=== PATIENT | female | born 1965 | race Caucasian/White ===

== ENCOUNTER → 2016-12-11 | Outpatient (CLI) | payer OTHER | LOC: FIMAGING 07:34 | PROVIDERS: ATTEND Family Medicine | DX: G45.3 Amaurosis fugax (principal); I77.9 Disorder of arteries and arterioles, unspecified; Z86.2 Personal history of diseases of the blood and blood-forming organs and certain disorders involving the immune mechanism ==

== ENCOUNTER 2017-01-01 09:45 | Day surgery (SDC) | payer OTHER ==
[2017-01-01] MEDS ORDERED: MIDAZOLAM 2 MG/2 ML VIAL IVP ONE (09:50)
[2017-01-01] MEDS ORDERED: BENZOCAINE UNIT DOSE SPRAY HURRICAINE MM ONE (09:50)
[2017-01-01] MEDS ORDERED: NS 1,000 ML IV ONE (09:50)
[2017-01-01] MEDS ORDERED: fentaNYL 100 MCG/2 ML INJ IVP ONE (09:50)
[2017-01-01] MEDS ORDERED: LIDOCAINE 2% 5 ML SDV ONE (10:54)
[2017-01-01] MEDS ORDERED: PROPOFOL 200 MG/20 ML VIAL ONE (10:55)
[2017-01-01 12:37] LABS: % IMMATURE GRANULYOCYTES 0.2 % (0.0-1.1); ABSOLUTE IMMATURE GRANULOCYTES 0.01 10^3/uL (0.00-0.10); ADD DIFF? NO; ADD MORPH? NO; ADD SCAN? NO; ATYPICAL LYMPHOCYTE FLAG 20 (0-99); FRAGMENT RBC FLAG 0 (0-99); HEMATOCRIT 42.1 % (38.0-47.0); HEMOGLOBIN 13.9 g/dL (12.6-16.3); LEFT SHIFT FLG 0 (0-99); LIPEMIA HEMOLYSIS FLAG 80 (0-99); MEAN CELL HEMOGLOBIN 28.4 pg (27.9-34.1); MEAN CELL VOLUME 85.9 fL (81.5-99.8); MEAN PLATELET VOLUME 11.3 fL (8.7-11.7); PLATELET CLUMPS FLAG 0 (0-99); PLATELET COUNT 198 10^3/uL (150-400)
[2017-01-01 13:06] LABS: SEDIMENTATION RATE 7 MM/HR (0-30)
--- NOTE | 2017-01-01 13:09 | ECHO ---
[id number] + + [address] : : [place] [address] : : [phone] + + Transesophageal Echocardiographic Report + ---------+ :Name: THERESE ALAN Date: 01/01/2017 10:58 AM : : Hospital Admission Number: [id number] Loca tion: CVC: :: 1965 Gender: Female : :Age: 51 yrs Race: WH : :Reason For Study: TIA : + ---------+ Left Ventricle Normal LV size and systolic function with a LVEF of 60% and normal wall motions. Right Ventricle Normal RV size and RV systolic function. Atria Injection of contrast documented no interatrial shunt. No thrombus is detected in the left atrial appendage. 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 There is mild to moderate mitral regurgitation. Tricuspid Valve Normal tricuspid valve. Trace TR noted. Aortic Valve The aortic valve is trileaflet. Pulmonic Valve Mild pulmonic valvular regurgitation. Vessels Normal size ascending thoracic aorta (2.5cm) with no dissection flap or atheroma. Conclusion A 2D transesophageal echocardiogram with color flow Doppler was performed. 1)Normal LV size and systolic function with a LVEF of 60% and normal wall motions. 2)No clot or thrombus in any of four cardiac valves or left atrial appendage. PW velocity in VIKTORIYA 50cm/sec. 3)No ASD or PFO noted and negative IV bubble study. 4)Normal trileaflet AV with no or AI noted. 5)Mild to moderate MR without MV prolapse. 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 No echo suggestion of tumor or vegetation. 6)Trivial TR noted. 7)Mild PI noted. 8)Normal ascending thoracic aorta with no atheroma, dissection flap or aneurysm. Final Reading Physician: Pedrito Pimentel electronically signed on 01/01/2017 01:07 PM Ordering Physician: Pedrito Pimentel Performed By: Carina Acuña RDCS
== END 2017-01-01 13:30 | disposition home or self-care (01) ==
LOC: FCATH 09:45
PROVIDERS: ATTEND Internal Medicine Cardiovascular Disease
PROC: B246ZZ4 Ultrasonography of Right and Left Heart, Transesophageal (ICD-10-PCS; principal; 2017-01-01)
DX: I34.0 Nonrheumatic mitral (valve) insufficiency (principal); G45.3 Amaurosis fugax; Z86.73 Personal history of transient ischemic attack (TIA), and cerebral infarction without residual deficits
CPT/HCPCS: J2704

== ENCOUNTER 2017-02-08 11:50 | Day surgery (SDC) | payer OTHER ==
[2017-02-08] MEDS ORDERED: LIDOCAINE 1% 300 MG/30 ML SDV ONE (12:49)
[2017-02-08] MEDS ORDERED: LIDOCAINE 1% 300 MG/30 ML SDV IF ONE (13:00)
== END 2017-02-08 14:51 | disposition home or self-care (01) ==
LOC: FCATH 11:50
PROVIDERS: ATTEND Internal Medicine Cardiovascular Disease
PROC: 0JH63PZ Insertion of Cardiac Rhythm Related Device into Chest Subcutaneous Tissue and Fascia, Percutaneous Approach (ICD-10-PCS; principal; 2017-02-08)
DX: I48.0 Paroxysmal atrial fibrillation (principal)
CPT/HCPCS: C1764